=== PATIENT | female | born 1960 | race Caucasian/White ===

== ENCOUNTER 2017-05-09 13:09 | Outpatient (CLI) | payer BC ==
[2017-05-09 14:46] LABS: Hematocrit 40.1 % (36.0-47.0); Mean Platelet Volume 7.2 fL (7.4-10.4); Red Blood Cell (RBC) Count 4.71 mill/uL (4.20-5.40); White Blood Cell (WBC) Count 8.8 thou/uL (4.8-10.8)
--- NOTE | 2017-05-10 09:06 | EKG ---
Test Reason : PREOP Blood Pressure : / mmHG Vent. Rate : 090 BPM Atrial Rate : 090 BPM P-R Int : 160 ms QRS Dur : 094 ms QT Int : 360 ms P-R-T Axes : 058 048 052 degrees QTc Int : 440 ms Normal sinus rhythm with sinus arrhythmia Normal ECG No previous ECGs available Confirmed by ERICH BARRAZA ([id number]) on 05/10/2017 9:06:14 AM Referred By: ADRY Confirmed By:ERICH BARRAZA
== END 2017-05-09 13:10 | disposition home or self-care (01) ==
LOC: LABBT 13:09
PROVIDERS: ATTEND Orthopaedic Surgery
DX: Z01.818 Encounter for other preprocedural examination (principal); S83.206A Unspecified tear of unspecified meniscus, current injury, right knee, initial encounter
CPT/HCPCS: 85027; 93005; 93010

== ENCOUNTER 2017-05-11 07:03 | Day surgery (SDC) | payer BC ==
[2017-05-09 13:59] VITALS: BMI 41.5
[2017-05-11] MEDS ORDERED: Diprivan 20 ML ONE (08:27)
[2017-05-11 08:56] LABS: Anion Gap 12 mmol/L (10-20); BUN (Urea Nitrogen) 12 mg/dL (9.8-20.1); Calc. Creatinine Clearance 119 mL/min (70-130); Calcium 9.8 mg/dL (7.8-10.44); Carbon Dioxide 25 mmol/L (22-29); Chloride 107 mmol/L (98-107); Estimated GFR-MDRD 65
--- NOTE | 2017-05-11 11:27 | OP ---
DATE OF OPERATION: 05/11/2017 PREOPERATIVE DIAGNOSES: Right knee large anterior horn of lateral meniscal tear as well as some cho ndromalacia of lateral compartment. POSTOPERATIVE DIAGNOSES: 1. Right knee large anterior horn of lateral meniscal tear as well as some chondromalacia of latera l compartment. 2. A small tear of the anterior horn of the medial meniscus. SURGERY PERFORMED: Right knee arthroscopy, partial medial and lateral meniscectomies. SURGEON: Butch Waddell M.D. SCHOOL SERVICES OFFICER: None. BLOOD LOSS: Minimal. COMPLICATIONS: None. ANESTHESIA: She had general anesthetic as well as a local knee block. DISPOSITION: She did go to the recovery room in stable condition. INDICATIONS: This is a 57-year-old female who has gotten some chronic pain issues who comes in comp laining of catching, swelling, and pain in her knee. At this time, I decided to perform arthroscopy and debridement versus knee replacement based on her films preoperatively, but still had no sign of [id number] in her plain films. At this time, she opted to have surgery. OPERATIVE PROCEDURE: After all appropriate consent forms were explained and signed, Emi was take n back to the operating room and at this time was given general anesthetic. Once anesthesia was alon ropriate, the tourniquet was placed on the right thigh and leg was placed in an arthroscopic leg hol nasrin. It was then prepped and draped in standard surgical fashion. Limb was exsanguinated and tourn iquet taken up to 300 mmHg. An inferolateral portal was established and the scope was placed into t he knee joint. A needle localization technique was then used to make a medial working portal. Diag nostic arthroscopy commenced in the notch. ACL and PCL probed and found to be intact. The femoral condyle medially did have some small area of grade 2 wear, no significant treatment was needed. The posterior horn and body of the medial meniscus was in good condition. The anterior horn and a smal l tear and this was taken down with the shaver. At this time, we went to the lateral compartment an d we could barely see in the lateral compartment secondary to a large complex tear of the lateral me niscus to include essentially the entire anterior horn and going on into the body. Large chunks of tissue were noted to be stuck inside the lateral compartment. This was shaved down. Once we could visualize everything pretty much the entire anterior horn of the lateral meniscus had been removed. The body and posterior horn were in good condition. There was some significant grade 2 and 3 chond romalacia on both the tibia and the femur. No significant unstable chondral flaps were noted. The gutters were swept through and no loose bodies were noted. Patellofemoral joint actually looked to be in pretty good condition and we then did see a loose chondral body up in the superior pouch and t his was removed with the shaver. At this time, scope was then removed, knee was drained. Portals w ere closed with simple nylon stitch. Bulky sterile dressing was applied and the tourniquet was let down. Toes pinked up nicely. The patient was awakened and taken to the recovery room in stable con dition. All counts were correct at the end of the case. She received preoperative IV antibiotics.
== END 2017-05-11 12:00 ==
LOC: SDC 07:03
PROVIDERS: ATTEND Orthopaedic Surgery
PROC: 0SCC4ZZ Extirpation of Matter from Right Knee Joint, Percutaneous Endoscopic Approach (ICD-10-PCS; principal; 2017-05-11)
PROC: 0SBC4ZZ Excision of Right Knee Joint, Percutaneous Endoscopic Approach (ICD-10-PCS; principal; 2017-05-11)
DX: S83.281A Other tear of lateral meniscus, current injury, right knee, initial encounter (principal); M94.261 Chondromalacia, right knee; I10 Essential (primary) hypertension; G47.30 Sleep apnea, unspecified; J44.9 Chronic obstructive pulmonary disease, unspecified; I20.8 Other forms of angina pectoris; K57.90 Diverticulosis of intestine, part unspecified, without perforation or abscess without bleeding; M79.7 Fibromyalgia; M19.90 Unspecified osteoarthritis, unspecified site; Z87.891 Personal history of nicotine dependence; Z99.89 Dependence on other enabling machines and devices; Z98.890 Other specified postprocedural states; Z88.5 Allergy status to narcotic agent; Z88.8 Allergy status to other drugs, medicaments and biological substances; Z79.51 Long term (current) use of inhaled steroids; Z79.899 Other long term (current) drug therapy
CPT/HCPCS: 80048; G8978-GP-CI; G8979-GP-CI; G8980-GP-CI; J1170; J2704